=== PATIENT | female | born 1960 | race Asian ===

== ENCOUNTER 2020-08-27 18:41 | Emergency (ER) | payer OTHER ==
[~2020-08-27] VITALS: Ht 152.4 cm; Wt 54.6 kg
--- NOTE | 2020-08-27 19:37 | NUR ---
PT AMBULATORY WITH STEADY GAIT FROM LOBBY TO ED ROOM 16
--- NOTE | 2020-08-27 19:45 | NUR ---
PT PRESENTS TO THE ED WITH SLIGHT FEVER AND COUGH. PT STATES HER THYROID NODULES HURT AND ARE CAUSING HER TO COUGH. SHE HAS A BIOPSY ON THEM NEXT WEEK 09/02/20. PT ON MONITOR AND IN GOWN, RESTING COMFORTABLY ON GURNEY
--- NOTE | 2020-08-27 19:47 | NUR ---
ERP AT BEDSIDE
--- NOTE | 2020-08-27 20:13 | NUR ---
PT AT XRAY
[2020-08-27 20:28] LABS: BASOPHILS % (AUTO) 1 % (0-1); EOSINOPHILS % (AUTO) 1 % (1-7); LYMPHOCYTES % (AUTO) 16 % (22-44); MEAN CORPUSCULAR HEMOGLOBIN 31.4 pg (27.0-34.8); MEAN PLATELET VOLUME 7.2 fL (7.4-10.4); MONOCYTES % (AUTO) 5 % (2-9); NEUTROPHILS % (AUTO) 77 % (42-75); PLATELET COUNT 472 x10^3/uL (130-400); RED BLOOD COUNT 4.16 x10^6/uL (3.82-5.3); RED CELL DISTRIBUTION WIDTH 12.5 % (9.6-15.2)
[2020-08-27 20:38] LABS: ALBUMIN 3.5 g/dL (3.4-5.0); ANION GAP 8 mmol/L (5-15); CALCIUM 9.4 mg/dL (8.5-10.1); CHLORIDE 106 mmol/L (98-107); CREATININE 0.66 mg/dL (0.55-1.02)
[2020-08-27 20:48] LABS: FREE T4 (FREE THYROXINE) 2.91 ng/dL (0.76-1.46)
[2020-08-27] MEDS ORDERED: ACETAMINOPHEN 500 MG TABLET ONE (21:22)
--- NOTE | 2020-08-27 21:25 | NUR ---
20 G IV TO LEFT AC, IVF STARTED AND TYLENOL GIVEN. PT'S TEMPERATURE BEFORE MEDICATION 98.4
[2020-08-27] MEDS ORDERED: SODIUM CHLORIDE 0.9% 1,000ML IVBOLUS ONE (21:30)
[2020-08-27] MEDS ORDERED: ACETAMINOPHEN 500 MG TABLET PO ONE (21:30)
[2020-08-27] MEDS ORDERED: SODIUM CHLORIDE FLUSH 10ML SYR IVF ONE (21:30)
--- NOTE | 2020-08-27 22:11 | NUR ---
PT UP TO THE RESTROOM, PT RESTING ON GURNEY, DENIES NEEDS AT THIS TIME.
--- NOTE | 2020-08-27 22:57 | NUR ---
PT RESTING COMFORTABLY ON GURNEY, DENIES NEEDS AT THIS TIME.
[2020-08-27 23:01] VITALS: BP 125/53
--- NOTE | 2020-08-27 23:16 | NUR ---
Patient given discharge instructions and they have confirmed that they understand the instructions. Patient ambulatory with steady gait.
== END 2020-08-27 23:18 | disposition home or self-care (01) ==
LOC: ED 19:11
DX: E05.20 Thyrotoxicosis with toxic multinodular goiter without thyrotoxic crisis or storm (principal); R50.9 Fever, unspecified
CPT/HCPCS: 36415; 70360; 71045; 80048; 82040; 83605; 84145; 84439; 84443; 85025; 87040; 99284; J7030

== ENCOUNTER 2020-09-01 17:16 | Emergency (ER) | payer OTHER ==
[~2020-09-01] VITALS: Ht 152.4 cm; Wt 53.7 kg
--- NOTE | 2020-09-01 18:48 | NUR ---
RECEIVED REPORT FROM MONE DE SANTIAGO TO ASSUME CARE OF PT.
[2020-09-01] MEDS ORDERED: METHIMAZOLE 5 MG TAB PO ONE (19:30)
[2020-09-01] MEDS ORDERED: ATENOLOL 25 MG TABLET PO ONE (19:30)
--- NOTE | 2020-09-01 20:11 | NUR ---
DR. RUIZ BACK IN TO FURTHER DISCUSS POC WITH PT. AND FAMILY AT BS. PT. CHOOSING TO GET RX FOR MEDS AND BE TREATED OUTPATIENT VS. ADMIT TO HOSPITAL.
[2020-09-01 20:27] VITALS: BP 93/68
== END 2020-09-01 20:41 | disposition home or self-care (01) ==
LOC: ED 19:11
DX: E05.20 Thyrotoxicosis with toxic multinodular goiter without thyrotoxic crisis or storm (principal); R19.7 Diarrhea, unspecified; R00.2 Palpitations
CPT/HCPCS: 93005; 99285

== ENCOUNTER 2020-11-11 10:24 | Outpatient (CLI) | payer OTHER ==
[2020-11-11 10:59] LABS: FREE T4 (FREE THYROXINE) 0.28 ng/dL (0.76-1.46)
== END 2020-11-11 23:59 | disposition home or self-care (01) ==
LOC: LAB 10:24
PROVIDERS: ATTEND Physician Assistant
DX: E05.00 Thyrotoxicosis with diffuse goiter without thyrotoxic crisis or storm (principal); R79.89 Other specified abnormal findings of blood chemistry
CPT/HCPCS: 36415; 84439; 84443; 84481